=== PATIENT | female | born 1985 | race Caucasian/White ===

== ENCOUNTER → 2016-08-17 | Outpatient (CLI) | payer OTHER ==
[~2016-08-17] MED LIST: LEVOXYL0.05 MG PO; NORCO 325 MG-51 TAB PO; XANAX 0.5MG0.5 MG PO; ZIAC 10/6.25M1 UDTAB PO; ZOFRAN 4MG T4 MG/TAB PO
== END ==
LOC: COL.RAD 12:35
DX: E03.9 Hypothyroidism, unspecified (principal)

== ENCOUNTER → 2016-09-14 | Outpatient (CLI) | payer OTHER ==
[2016-09-14 09:22] LABS: HEMATOCRIT 39.1 % (37.0-47.0); HEMOGLOBIN 13.4 g/dl (12.5-16.0); MEAN CELL VOLUME 88 fl (80.0-100.0); MEAN CORPUSCULAR HEMOGLOBIN 30 pg (27.0-31.0); MEAN CORPUSCULAR HGB CONC 34 g/dl (33.0-37.0); MEAN PLATELET VOLUME 9.6 fl (7.4-10.4); PLATELET COUNT 306 K/mm3 (130-400); RED BLOOD COUNT 4.46 M/mm3 (4.10-5.30); REDCELL DISTRIBUTION WIDTH-CV 12.3 % (11.5-14.5); WHITE BLOOD COUNT 5.7 K/mm3 (4.8-10.8)
[2016-09-14 09:38] LABS: ADJUSTED CALCIUM 9.2 mg/dL (8.4-10.2); ALBUMIN 4.9 gm/dL (3.5-5.0); CALCIUM 9.9 mg/dL (8.4-10.2); CREATININE, serum 0.7 mg/dL (0.52-1.25); POTASSIUM 4.2 mmol/L (3.4-5.0)
== END ==
LOC: COL.RAD 08:54
DX: D12.6 Benign neoplasm of colon, unspecified (principal); Z90.49 Acquired absence of other specified parts of digestive tract
CPT/HCPCS: Q9967

== ENCOUNTER → 2016-10-23 | Outpatient (CLI) | payer OTHER | LOC: COL.RAD 07:16 | DX: R11.0 Nausea (principal); R10.11 Right upper quadrant pain ==

== ENCOUNTER 2016-11-03 10:36 | Day surgery (SDC) | payer OTHER ==
[~2016-11-03] VITALS: Ht 152.4 cm; Wt 47.4 kg
[2016-11-03 11:11] VITALS: BP 107/68; PULSE 62; TEMP 97.7
[2016-11-03] MEDS ORDERED: ZIAC 10/6.25M1 UDTAB PO (11:17)
[2016-11-03] MEDS ORDERED: XANAX 0.5MG0.5 MG PO (11:17)
[2016-11-03] MEDS ORDERED: NORCO 325 MG-51 TAB PO (11:17)
[2016-11-03] MEDS ORDERED: ZOFRAN 4MG T4 MG/TAB PO (11:18)
[2016-11-03] MEDS ORDERED: LEVOXYL0.05 MG PO (11:18)
[2016-11-03 13:22] VITALS: BP 101/73; PULSE 72; TEMP 97.8
[2016-11-03 13:30] VITALS: BP 103/70; PULSE 72
[2016-11-03 13:45] VITALS: BP 136/122; PULSE 66
[2016-11-03 14:00] VITALS: BP 125/85; PULSE 63
[2016-11-03 14:57] VITALS: BP 83/49; PULSE 81
== END 2016-11-03 14:00 | disposition home or self-care (01) ==
LOC: SDCO 10:36
DX: K31.7 Polyp of stomach and duodenum (principal); D13.2 Benign neoplasm of duodenum; K30 Functional dyspepsia; D12.0 Benign neoplasm of cecum
CPT/HCPCS: J2704; J7120

== ENCOUNTER → 2016-11-08 | Outpatient (CLI) | payer OTHER | LOC: COL.RAD 10:29 | DX: R10.13 Epigastric pain (principal); R11.0 Nausea | CPT/HCPCS: A9537 ==

== ENCOUNTER → 2017-02-20 | Outpatient (CLI) | payer OTHER | LOC: COL.RAD 08:31 | DX: R10.13 Epigastric pain (principal); R10.12 Left upper quadrant pain; R93.3 Abnormal findings on diagnostic imaging of other parts of digestive tract; Z93.2 Ileostomy status; Z90.49 Acquired absence of other specified parts of digestive tract; Z86.010 Personal history of colon polyps ==

== ENCOUNTER → 2017-03-05 | Outpatient (CLI) | payer OTHER | LOC: COL.RAD 07:23 | DX: Z43.2 Encounter for attention to ileostomy (principal); D12.6 Benign neoplasm of colon, unspecified; K83.8 Other specified diseases of biliary tract; Z71.9 Counseling, unspecified ==

== ENCOUNTER → 2017-03-06 | Outpatient (CLI) | payer OTHER | LOC: COL.RAD 05:58 | DX: D12.6 Benign neoplasm of colon, unspecified (principal) | CPT/HCPCS: A9541 ==

== ENCOUNTER → 2017-03-08 | Outpatient (CLI) | payer OTHER | LOC: COL.RAD 07:29 | DX: Z43.2 Encounter for attention to ileostomy (principal); D12.6 Benign neoplasm of colon, unspecified; M53.3 Sacrococcygeal disorders, not elsewhere classified; I87.8 Other specified disorders of veins; Z90.710 Acquired absence of both cervix and uterus; Z90.49 Acquired absence of other specified parts of digestive tract | CPT/HCPCS: J7050; Q9967 ==

== ENCOUNTER 2018-03-15 08:55 | Day surgery (SDC) | payer OTHER ==
[~2018-03-15] VITALS: Ht 152.4 cm; Wt 48.2 kg
[2018-03-15 09:33] VITALS: BP 102/66; PULSE 56; TEMP 97.7
[2018-03-15 10:55] VITALS: BP 113/56; PULSE 85; TEMP 97.6
[2018-03-15 11:00] VITALS: BP 106/70; PULSE 80; TEMP 97.4
[2018-03-15 11:15] VITALS: BP 110/65; PULSE 83
[2018-03-15 11:30] VITALS: BP 108/64; PULSE 82
== END 2018-03-15 12:00 ==
LOC: SDCO 08:55
DX: D13.2 Benign neoplasm of duodenum (principal); K31.7 Polyp of stomach and duodenum; D12.6 Benign neoplasm of colon, unspecified; F41.9 Anxiety disorder, unspecified; R19.7 Diarrhea, unspecified; K59.00 Constipation, unspecified; E03.9 Hypothyroidism, unspecified; Z88.1 Allergy status to other antibiotic agents; Z90.710 Acquired absence of both cervix and uterus; Z90.49 Acquired absence of other specified parts of digestive tract; Z87.891 Personal history of nicotine dependence; Z83.79 Family history of other diseases of the digestive system
CPT/HCPCS: J2704; J3010; J7120

== ENCOUNTER → 2018-10-15 | Outpatient (CLI) | payer OTHER | LOC: COL.RAD 08:45 | DX: R63.4 Abnormal weight loss (principal); R63.0 Anorexia ==

== ENCOUNTER 2019-01-17 11:05 | Day surgery (SDC) | payer OTHER ==
[~2019-01-17] VITALS: Ht 152.4 cm; Wt 49.4 kg
[2019-01-17] MEDS ORDERED: PRIL40 PO (11:30)
[2019-01-17 11:43] VITALS: BP 110/68; PULSE 84; TEMP 98
[2019-01-17 13:30] VITALS: BP 109/64; PULSE 96; TEMP 97.6
--- NOTE | 2019-01-17 13:30 | NUR ---
Patient brought back to [facility] via cart. Alert and oriented, ambulated to chair without difficulty. Patients brother at bedside. Placed on monitors, vital signs stable. HR elevated, typical of patient. Patient requesting water at this time. Will continue to monitor.
[2019-01-17 13:45] VITALS: BP 99/71; PULSE 95
[2019-01-17 14:00] VITALS: BP 111/73; PULSE 94
--- NOTE | 2019-01-17 14:00 | NUR ---
Patient vital signs remain stable. Tolerating drink well. Patient to get dressed at this time.
--- NOTE | 2019-01-17 14:02 | NUR ---
Patient tolerating food and drink without difficulty. Patient states she does not want anything to eat at this time. Will continue to monitor.
--- NOTE | 2019-01-17 14:29 | NUR ---
Discharge instructions reviewed with patient and brother. Verbalized understanding. Patient brought down to lobby via wheel chair. To be driven home by brother Manjit.
== END 2019-01-17 14:29 | disposition home or self-care (01) ==
LOC: SDCO 11:05
DX: K63.89 Other specified diseases of intestine (principal); D13.39 Benign neoplasm of other parts of small intestine; K31.7 Polyp of stomach and duodenum; K29.30 Chronic superficial gastritis without bleeding; K56.609 Unspecified intestinal obstruction, unspecified as to partial versus complete obstruction; K21.9 Gastro-esophageal reflux disease without esophagitis; E03.9 Hypothyroidism, unspecified; F41.9 Anxiety disorder, unspecified; Z90.710 Acquired absence of both cervix and uterus; Z88.2 Allergy status to sulfonamides; Z88.8 Allergy status to other drugs, medicaments and biological substances; Z88.1 Allergy status to other antibiotic agents
CPT/HCPCS: J2704

== ENCOUNTER → 2019-07-02 | Outpatient (CLI) | payer OTHER ==
[~2019-07-02] MED LIST changes: +PRIL40 PO
== END ==
LOC: COL.RAD 07:11
DX: Z90.49 Acquired absence of other specified parts of digestive tract (principal); Z93.2 Ileostomy status; Z90.710 Acquired absence of both cervix and uterus
CPT/HCPCS: Q9967

== ENCOUNTER → 2019-09-15 | Outpatient (CLI) | payer OTHER | LOC: COL.LAB 14:30 | DX: Z01.818 Encounter for other preprocedural examination (principal); Z20.828 Contact with and (suspected) exposure to other viral communicable diseases ==

== ENCOUNTER 2020-06-20 19:13 | Emergency (ER) | payer OTHER ==
[~2020-06-20] VITALS: Wt 51.4 kg
[2020-06-20 19:36] LABS: BASO # 0.1 (0.0-0.2); BASO % 0.3 % (0.0-2.0); EOS # 0.5 (0.0-0.7); EOS % 2.9 % (0-4.0); GRAN # 14.6 (1.4-6.5); GRAN % 80.4 % (42.2-75.2); LYMPH # 1.6 (1.2-3.4); LYMPH % 8.7 % (20.0-51.0); MEAN CELL VOLUME 92 fl (80.0-100.0); MEAN CORPUSCULAR HGB CONC 32 g/dl (33.0-37.0); MEAN PLATELET VOLUME 9.7 fl (7.4-10.4); MONO # 1.3 (0.1-0.6); MONO % 6.9 % (1.7-9.3); PLATELET COUNT 248 K/mm3 (130-400); RED BLOOD COUNT 2.36 M/mm3 (4.10-5.30)
[2020-06-20 19:42] LABS: HEMATOCRIT 21.6 % (37.0-47.0); MEAN CORPUSCULAR HEMOGLOBIN 30 pg (27.0-31.0)
[2020-06-20 19:46] LABS: INR 1.3 (0.8-3.0); PROTHROMBIN TIME 14.5 SECONDS (9.7-12.8)
[2020-06-20 19:53] LABS: ALBUMIN 2.7 gm/dL (3.5-5.0); BILIRUBIN,TOTAL 0.4 mg/dL (0.0-1.0); C-REACTIVE PROTEIN 7.7 mg/dL (0.0-0.9); CALCIUM 7.7 mg/dL (8.4-10.2); CREATININE, serum 0.56 (0.52-1.25); TOTAL PROTEIN 4.9 gm/dL (6.4-8.2)
[2020-06-20 19:58] LABS: POTASSIUM 2.9 mmol/L (3.4-5.0)
[2020-06-20 21:20] VITALS: BP 100/59; PULSE 112; TEMP 99.1
== END 2020-06-20 21:20 | disposition short-term general hospital (02) ==
LOC: COL.ER 19:13
PROVIDERS: Emergency Medicine
DX: K92.2 Gastrointestinal hemorrhage, unspecified (principal); E87.6 Hypokalemia; R57.1 Hypovolemic shock; I87.1 Compression of vein; K86.89 Other specified diseases of pancreas; Z90.710 Acquired absence of both cervix and uterus; Z88.2 Allergy status to sulfonamides; Z88.1 Allergy status to other antibiotic agents; Z88.6 Allergy status to analgesic agent
CPT/HCPCS: C9113; J2405; J3010; J3480; J7030; P9016

== ENCOUNTER → 2023-06-29 | Outpatient (CLI) | payer OTHER, MEDICARE | LOC: COL.RAD 10:07 | DX: E07.89 Other specified disorders of thyroid (principal); D12.6 Benign neoplasm of colon, unspecified ==

== ENCOUNTER 2024-01-10 02:00 | Emergency (ER) | payer OTHER, MEDICARE ==
[~2024-01-10] VITALS: Ht 152.4 cm; Wt 45.5 kg
[2024-01-10 02:06] VITALS: TEMP 97.1
[2024-01-10] MEDS ORDERED: NS 1,000 ML IV ONE (02:15)
[2024-01-10] MEDS ORDERED: Ondansetron 4 MG/2 ML VIAL IV ONE (02:15)
[2024-01-10] MEDS ORDERED: fentaNYL 50 MCG/ML 2 ML VIAL IV ONE (02:15)
[2024-01-10 02:24] LABS: BASO % 0.4 % (0.0-2.0); EOS # 0.1 K/mm3 (0.0-0.7); EOS % 0.6 % (0.0-4.0); GRAN % 82.5 % (42.2-75.2); HEMATOCRIT 38.8 % (37.0-47.0); HEMOGLOBIN 13.4 g/dl (12.5-16.0); LYMPH % 9.4 % (20.0-51.0); MEAN CELL VOLUME 86 fl (80.0-100.0); MEAN CORPUSCULAR HEMOGLOBIN 30 pg (27-31); MEAN CORPUSCULAR HGB CONC 35 g/dl (33.0-37.0); MEAN PLATELET VOLUME 9.1 fl (7.4-10.4); MONO # 0.7 K/mm3 (0.1-0.6); MONO % 6.4 % (1.7-9.3); PLATELET COUNT 580 K/mm3 (130-400); RED BLOOD COUNT 4.51 M/mm3 (4.10-5.30); REDCELL DISTRIBUTION WIDTH-CV 12.7 % (11.5-14.5)
[2024-01-10] MEDS ORDERED: HYDROmorphone 0.5 MG/0.5 ML SYRINGE IV ONE ×4 (02:45→07:30)
[2024-01-10 02:48] LABS: ALANINE AMINOTRANSFERASE 11 U/L (0-55); ALBUMIN 3.8 g/dL (3.5-5.0); ALKALINE PHOSPHATASE 58 U/L (40-150); ANION GAP 22 mmol/L (7-16); AST,SGOT 21 U/L (5-34); BILIRUBIN,TOTAL 0.3 mg/dL (0.2-1.2); BLOOD UREA NITROGEN < 5 mg/dL (7-19); CALCIUM 10.4 mg/dL (8.4-10.2); CHLORIDE 92 mEq/L (98-107); CREATININE, serum 0.76 mg/dL (0.57-1.11); GLUCOSE 113 mg/dL (70-99); LIPASE 81 U/L (8-78); POTASSIUM 3.1 mEq/L (3.5-4.5); SODIUM 137 mEq/L (136-145); TOTAL PROTEIN 7.9 g/dl (6.2-8.1)
[2024-01-10] MEDS ORDERED: Iohexol 300 - 100 ML VIAL IV ONE (03:26)
[2024-01-10] MEDS ORDERED: NS 50 ML IV SCH (03:27)
[2024-01-10 03:58] LABS: SALICYLATE < 5.0 mg/dL (15.0-30.0)
[2024-01-10 08:03] VITALS: BP 125/87; PULSE 106
== END 2024-01-10 08:21 | disposition short-term general hospital (02) ==
LOC: COL.ER 02:00
PROVIDERS: Emergency Medicine
DX: K56.609 Unspecified intestinal obstruction, unspecified as to partial versus complete obstruction (principal); Z93.2 Ileostomy status
CPT/HCPCS: J1171; J2405; J3010; J7030; Q9967